=== PATIENT | male | born 1950 | race Caucasian/White ===

== ENCOUNTER 2023-06-12 18:16 | Observation (INO) | payer OTHER, SELFPAY ==
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
[2023-06-12 12:35] LABS: % Basophils 0.6 % (0-2); % Eosinophils 1.1 % (0-6); % Immature Granulocytes 0.5 % (0-0.5); % Lymphocytes 21.7 % (20.5-51.1); % Monocytes 11.2 % (1.7-9.3); % Neutrophils 64.9 % (42.2-75.2); Absolute Basophils 0.1 10^3/uL (0-0.2); Absolute Eosinophils 0.1 10^3/uL (0-0.7); Absolute Immature Granulocytes 0.1 10^3/uL (0-0.05); Absolute Lymphocytes 2.5 10^3/uL (1.2-3.4); Absolute Monocytes 1.3 10^3/uL (0.1-0.6); Absolute Neutrophils 7.4 10^3/uL (1.4-6.5); Hematocrit 33.9 % (39.0-52.0); Hemoglobin 10.4 g/dL (13.0-18.0); Mean Corp Hgb Conc. 30.7 g/dL (33.0-37.0); Mean Corpuscular Hgb 23.3 pg (27.0-31.0); Mean Platelet Volume 10.9 fL (7.4-10.4); Nucleated Red Blood Cells % 0 % (-); Platelet Count 306 10^3/uL (130-400); Red Blood Cell Count 4.46 10^6/uL (4.70-6.10); Red Cell Dist. Width 17.5 % (11.5-14.5); White Blood Cell Count 11.4 10^3/uL (4.8-10.8)
[2023-06-12 12:50] VITALS: BMI 36.2
[2023-06-12 13:07] LABS: ALT (SGPT) 20 U/L (0-50); AST (SGOT) 21 U/L (17-59); Albumin 4.3 g/dl (3.5-5.0); Alkaline Phosphatase 64 U/L (38-126); Blood Urea Nitrogen 16 mg/dl (9-20); Calcium 9.1 mg/dl (8.4-10.2); Carbon Dioxide 22 mmol/L (22-30); Chloride 106 mmol/L (98-107); Estimated Creatinine Clearance 92 ml/min; Glucose 135 mg/dl (70-99); Lipase 156 U/L (23-300); Potassium 4.4 mmol/L (3.5-5.1); Sodium 135 mmol/L (135-145); Total Bilirubin 0.8 mg/dl (0.2-1.3); Total Protein 7.1 g/dl (6.3-8.2); eGFR > 60.00
[2023-06-12] MEDS: NSS 1000 IV ×2 (13:10→21:36)
[2023-06-12] MEDS: DILAUDID 1 MG IV ×2 (13:10→17:15)
[2023-06-12] MEDS: ZOFRAN 4 MG IV (13:10)
[2023-06-12 14:54] VITALS: BP 127/82
[2023-06-12] MEDS: PROTONIX IV 80 MG IV (15:49)
[2023-06-12] MEDS: PEPCID 20 MG IV (15:49)
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
[2023-06-12 19:00] VITALS: BP 117/72
[2023-06-12] MEDS: ULTRAM 50 MG PO (19:19)
[2023-06-12 20:00] VITALS: BP 123/77
[2023-06-12 21:05] VITALS: BP 123/81; BMI 39.0
[2023-06-12] MEDS: FLOMAX 0.400000000000000022 MG PO (21:35)
[2023-06-12] MEDS: LIPITOR 80 MG PO (21:35)
[2023-06-12] MEDS: TYLENOL 650 MG PO (21:35)
[2023-06-12] MEDS: TENORMIN 25 MG PO (21:35)
[2023-06-12] MEDS: NSS (PRESERVATIVE FREE) 10 ML IV (21:36)
[2023-06-12] MEDS: PROTONIX IV 40 MG IV (21:36)
[2023-06-12 23:37] VITALS: BP 99/54
[2023-06-13] MEDS: TYLENOL 650 MG PO ×3 (02:12→20:45)
[2023-06-13 06:36] LABS: Hematocrit 31.6 % (39.0-52.0); Hemoglobin 9.1 g/dL (13.0-18.0); Mean Corp Hgb Conc. 28.8 g/dL (33.0-37.0); Mean Platelet Volume 11.2 fL (7.4-10.4); Platelet Count 262 10^3/uL (130-400); Red Blood Cell Count 3.95 10^6/uL (4.70-6.10); Red Cell Dist. Width 17.7 % (11.5-14.5); White Blood Cell Count 8.8 10^3/uL (4.8-10.8)
[2023-06-13 06:56] LABS: ALT (SGPT) 17 U/L (0-50); AST (SGOT) 18 U/L (17-59); Albumin 3.5 g/dl (3.5-5.0); Alkaline Phosphatase 57 U/L (38-126); Blood Urea Nitrogen 18 mg/dl (9-20); Calcium 8.7 mg/dl (8.4-10.2); Carbon Dioxide 25 mmol/L (22-30); Chloride 101 mmol/L (98-107); Estimated Creatinine Clearance 87 ml/min; Glucose 108 mg/dl (70-99); Potassium 4.4 mmol/L (3.5-5.1); Sodium 135 mmol/L (135-145); Total Bilirubin 1.1 mg/dl (0.2-1.3); eGFR > 60.00
[2023-06-13 07:57] VITALS: BP 111/66
[2023-06-13] MEDS: FEOSOL 162.5 MG PO (08:13)
[2023-06-13] MEDS: JARDIANCE 25 MG PO (08:13)
[2023-06-13] MEDS: TENORMIN 25 MG PO ×2 (08:13→20:51)
[2023-06-13] MEDS: NSS (PRESERVATIVE FREE) 10 ML IV ×2 (08:14→20:52)
[2023-06-13] MEDS: PROTONIX IV 40 MG IV ×2 (08:14→20:51)
[2023-06-13] MEDS: NSS 1000 IV (08:14)
[2023-06-13] MEDS: COZAAR 50 MG PO (08:14)
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
[2023-06-13] MEDS: ULTRAM 50 MG PO ×2 (08:21→16:23)
[2023-06-13 10:25] LABS: IgA 216 mg/dl (70-400)
[2023-06-13 11:25] LABS: Glucose - Point of Care 100 mg/dl (70-99)
--- NOTE | 2023-06-13 11:32 | W.PN.HOSP.TC ---
Addendum entered and electronically signed by Matthieu Mckenzie MD 06/14/23 09:12:
* Outside Maintenance Worker name is Dr Chandler.
Addendum entered and electronically signed by Matthieu Mckenzie MD 06/13/23 11:47:
Discussed with his veterinarian laboratory animal care Dr. Townsend.
The stent was placed in 2010 to LAD and he had a left heart cath in 2020 which showed patency. Patient has not seen her since 2020 and she has not prescribed the Plavix. . She recommends discontinuing aspirin and holding further Plavix .
Original Note:
Today's Communication/Plan
-
see plan above
Assessment / Plan
Assessment / Plan
# Severe active duodenitis involving the descending segment.
#Duodenal ulcers-3 without stigmata of bleeding noted on EGD today
-Patient on dual antiplatelet agent which will discuss with cardiology regarding further role of DAPT.
-Continue with PPI as recommended by GI and follow-up EGD in 2 to 3 months. Follow-up EGD biopsies.
Start on a diet.
# Cholelithiasis with RUQ pain, normal LFTs, normal T bili, �few layering tiny calcified stones.�
-His abdominal pain is suspicious related to his gastric pathology than cholelithiasis. Currently cholelithiasis is felt asymptomatic.
# Anemia - Chronic ; currently normocytic.
No obvious external bleeding. No upper GI bleed. Check iron stores. Hemoccult testing.
Past medical history:
#Cardiac arrest/CAD/PA history cardiac stent LAD 2010
-resume aspirin /hold Plavix for now till reviewed by veterinarian laboratory animal care
#Hypertension, stable, continue home meds w parameters
#DM-II/diabetic neuropathy
-cont home meds
#Morbid Obesity
#COPD, stable
#chronic bronchitis
�asbestosis
�sleep apnea
#Arthritis, chronic neck and back pain, lumbar disc disease
#HLD
#anemia, stable, repeat CBC in am
#diverticulitis, GERD/GI ulcers
#OA chronic headaches
#[place]
DVT proph-PCDs
Full Code
Anticipated Discharge: 24 - 48 hours
Subjective/Interval History
-
Date of Service: June 13, 2023
Back from EGD. Report noted with gastric polyps and 3 nonbleeding duodenal ulcer.
Currently denies any nausea vomiting. Some epigastric discomfort as before without any worsening.
He has been taking aspirin and Plavix for coronary artery stent. It was placed in . Denies using NSAIDs. Not on any PPI before coming into the hospital.
Objective Data
-
Labs:
Laboratory Results
06/13/23
05:20
WBC 8.8
Hgb 9.1 L
Hct 31.6 L
Plt Count 262
Sodium 135
Potassium 4.4
Chloride 101
Carbon Dioxide 25
BUN 18
Creatinine 0.9
Glucose 108 H
Calcium 8.7
Total Bilirubin 1.1
AST 18
ALT 17
Alkaline Phosphatase 57
Vital Signs:
Vital Signs
Temp Pulse Resp BP Pulse Ox
97.6 F 61 17 111/66 96
06/13/23 07:57 06/13/23 08:13 06/13/23 07:57 06/13/23 08:13 06/13/23 07:57
I&O
06/12/23 06/13/23 06/14/23
06:59 06:59 06:59
Intake Total 1160 / 1160
Output Total 150 / 150
Balance 1010 / 1010
Review of Systems
-
Constitutional: Denies Fever
EENT: Denies Sore Throat
Respiratory: Denies Cough or Trouble Breathing
Cardiac: Denies Chest Pain
Neuro: Denies Dizzy
Physical Exam
-
General: No Apparent Distress
HEENT: Moist Mucous Membranes
Respiratory: Clear to Auscultation
Cardiac: Regular Rhythm and S1/S2
GI: Soft and Nontender
Neuro: AO x 3
Psych: Calm
Data Reviewed
-
Labs: Labs Reviewed by me
[2023-06-13] MEDS: NOVOLOG FLEXPEN-LOW RESISTANCE SC (11:57)
[2023-06-13] MEDS: ASPIR LOW (ENTERIC COATED) 81 MG PO (11:59)
[2023-06-13 13:14] LABS: Reticulocyte Count 2.2 % (0.4-2.8)
[2023-06-13 14:33] LABS: Iron 63 ug/dl (49-181)
[2023-06-13 14:43] LABS: Percent Saturation 13 % (20-50); Total Iron Binding Capacity 456 ug/dl (261-462)
[2023-06-13 15:20] VITALS: BP 107/54
[2023-06-13] MEDS: GLUCOPHAGE 1000 MG PO (16:23)
[2023-06-13] MEDS: NEURONTIN 100 MG PO ×2 (16:23→22:46)
--- NOTE | 2023-06-13 16:30 | CM ---
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 Uses a straight cane on occasion when out of the home. Also has a RW
and shower chair. Patient will need HD with [email or web address] in [place]. His chair days are --. Stunt Person aware of change in schedule and approved. Chair time is 5am on 06/15/23. He will also need to have IV/AB on days of HD. IV/AB script and
additional records forwarded earlier today to [facility]. Pharmacy is [facility] on [address] in [facility]. PCP is Dr. Esther Gunter. DISCHARGE PLAN of CARE: Home with no needs. Patient in agreement.
[2023-06-13 16:43] LABS: Ferritin 5.7 ng/ml (17.9-464.0)
[2023-06-13 16:57] LABS: Glucose - Point of Care 167 mg/dl (70-99)
--- NOTE | 2023-06-13 17:10 | CM ---
Pharmacy is [facility] on [address] in [facility]. PCP is Dr. Esther Gunter. DISCHARGE PLAN of CARE: Home with no needs. Patient in agreement
--- NOTE | 2023-06-13 17:11 | CM ---
HOME WITH NO NEEDS. 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 Uses a straight cane on occasion when out of the home. Also has a RW and shower chair. Pharmacy is [facility] on
[address] in [place]. PCP is Dr. Esther Gunter. DISCHARGE PLAN of CARE: Home with no needs. Patient in agreement.
[2023-06-13] MEDS: NOVOLOG FLEXPEN-LOW RESISTANCE 1 UNITS SC (17:58)
[2023-06-13] MEDS: ZOFRAN 4 MG IV (18:38)
[2023-06-13 21:28] LABS: Glucose - Point of Care 163 mg/dl (70-99)
[2023-06-13] MEDS: FLOMAX 0.400000000000000022 MG PO (22:46)
[2023-06-13] MEDS: LIPITOR 80 MG PO (22:46)
[2023-06-13 23:21] VITALS: BP 110/56
[2023-06-14] MEDS: TYLENOL 650 MG PO (05:34)
--- NOTE | 2023-06-14 05:44 | W.PN.GI.CBS2 ---
Today's Communication / Plan
-
See assessment and plan for details.
Assessment / Plan
-
1. Duodenal ulcers: Clean-based, without evidence of active bleeding now, likely the source of his dyspepsia, tolerating diet without difficulty. Will await morning labs, though if no significant changes okay to DC from GI standpoint on PPI twice
daily, avoiding NSAIDs, okay to restart low-dose aspirin on discharge given his coronary artery disease. Will plan repeat EGD and colonoscopy in 2 to 3 months to assess healing and to evaluate for his chronic anemia. If morning hemoglobin is okay
we will sign off, please call back with any further questions.
Subjective
Subjective
Date of Service: June 14, 2023
Patient feeling okay, some nausea, tolerated dinner well has been eating overnight without difficulty, no vomiting, fever or chills. Some discomfort still though no worse, no bowel movements.
Objective
Data Reviewed
Laboratory Data:
Laboratory Results
06/13/23 05:20
Laboratory Results
Total Bilirubin 1.1 mg/dl (0.2-1.3) 06/13/23 05:20
AST 18 U/L (17-59) 06/13/23 05:20
ALT 17 U/L (0-50) 06/13/23 05:20
Alkaline Phosphatase 57 U/L (38-126) 06/13/23 05:20
Lipase 156 U/L (23-300) 06/12/23 12:15
Vital Signs and I&O:
Vital Signs
Temp Pulse Resp BP Pulse Ox
97.5 F 66 20 110/56 96
06/13/23 23:21 06/13/23 23:21 06/13/23 23:21 06/13/23 23:21 06/14/23 00:03
I&O
06/12/23 06/13/23 06/14/23
06:59 06:59 06:59
Intake Total 1160 / 1160 1440 / 1440
Output Total 150 / 150 550 / 550
Balance 1010 / 1010 890 / 890
Physical Exam
Physical Exam
General: NAD
Abdomen: normal bowel sounds, soft, minimal epigastric tenderness, no masses or bruits, no ascites
[2023-06-14 06:23] LABS: Hematocrit 33.4 % (39.0-52.0); Hemoglobin 9.7 g/dL (13.0-18.0); Mean Corpuscular Hgb 23.2 pg (27.0-31.0); Mean Corpuscular Volume 79.7 fL (80.0-94.0); Mean Platelet Volume 11.3 fL (7.4-10.4); Platelet Count 275 10^3/uL (130-400); Red Blood Cell Count 4.19 10^6/uL (4.70-6.10); Red Cell Dist. Width 17.7 % (11.5-14.5)
[2023-06-14 07:20] LABS: Glucose - Point of Care 119 mg/dl (70-99)
[2023-06-14 07:50] VITALS: BP 110/63
[2023-06-14] MEDS: PROTONIX IV 40 MG IV (08:18)
[2023-06-14] MEDS: ASPIR LOW (ENTERIC COATED) 81 MG PO (08:19)
[2023-06-14] MEDS: NSS (PRESERVATIVE FREE) 10 ML IV (08:19)
[2023-06-14] MEDS: JARDIANCE 25 MG PO (08:19)
[2023-06-14] MEDS: COZAAR 50 MG PO (08:19)
[2023-06-14] MEDS: NEURONTIN 100 MG PO (08:19)
[2023-06-14] MEDS: FEOSOL 162.5 MG PO (08:20)
[2023-06-14] MEDS: GLUCOPHAGE 1000 MG PO (08:20)
[2023-06-14] MEDS: TENORMIN 25 MG PO (08:20)
[2023-06-14] MEDS: NOVOLOG FLEXPEN-LOW RESISTANCE SC ×2 (08:22→12:12)
[2023-06-14 08:37] LABS: Glycohemoglobin (HgbA1c) 6.9 % (4.0-5.6)
--- NOTE | 2023-06-14 09:14 | W.PN.HOSP.TC ---
Today's Communication/Plan
-
DC
Assessment / Plan
Assessment / Plan
# Severe active duodenitis involving the descending segment.
#Duodenal ulcers-3 without stigmata of bleeding noted on EGD 06/13
-Patient on dual antiplatelet agent; discussed with cardiology Dr Chandler -he had a coronary stent in 2010 and he had repeat cardiac catheterization in 2020 with patency of LAD stent. Patient has not seen her in follow-up since 2020 and she was not
renewing the Plavix. She does not see indication of continuing Plavix from our end. Continue with just aspirin. Patient advised to follow-up with her resource coordinator after discharge.
-Continue with PPI as recommended by GI and follow-up EGD in 2 to 3 months. Follow-up EGD biopsies.
Tolerating diet.
# Cholelithiasis with RUQ pain, normal LFTs, normal T bili, �few layering tiny calcified stones.�
-His abdominal pain is suspicious related to his gastric pathology than cholelithiasis. Currently cholelithiasis is felt asymptomatic. Advised outpatient follow-up with his general surgery.
# Anemia - Chronic ; currently normocytic.
No obvious external bleeding. No upper GI bleed. Iron studies suggest iron deficiency.. No BM in the hospital.
Patient tells me anemia was noted and was asked to get a colonoscopy. He is also taking iron pills at home.
Patient is going to follow-up with the current GI team for his colonoscopy. Since oral supplementation of iron is not helping the ferritin advised him to follow-up with PCP and get IV iron infusions as outpatient.
Past medical history:
#Cardiac arrest/CAD/CT history cardiac stent LAD 2010
-resume aspirin
#Hypertension, stable, continue home meds w parameters
#DM-II/diabetic neuropathy
-cont home meds
#Morbid Obesity
#COPD, stable
#chronic bronchitis
�asbestosis
�sleep apnea
#Arthritis, chronic neck and back pain, lumbar disc disease
#HLD
#anemia, stable, repeat CBC in am
#diverticulitis, GERD/GI ulcers
#OA chronic headaches
#[place]
DVT proph-PCDs
Full Code
Medically stable for discharge
More than 30 minutes spent in discharge including
Final examination of the patient
Summarizing hospital stay
Instructions for continuing care to all relevant caregivers
Preparation of discharge records, prescriptions, and referral forms
Total time spent (in minutes): 32 minutes
Anticipated Discharge: Today
Subjective/Interval History
-
Date of Service: June 14, 2023
Improved abdominal pain. No nausea vomiting. Tolerating diet.
Objective Data
-
Labs:
Laboratory Results
06/14/23
05:21
WBC 8.0
Hgb 9.7 L
Hct 33.4 L
Plt Count 275
Vital Signs:
Vital Signs
Temp Pulse Resp BP Pulse Ox
97.8 F 60 16 110/63 95
06/14/23 07:50 06/14/23 08:19 06/14/23 07:50 06/14/23 08:19 06/14/23 07:50
I&O
06/13/23 06/14/23 06/15/23
06:59 06:59 06:59
Intake Total 1160 / 1160 1440 / 1440
Output Total 150 / 150 1100 / 1100
Balance 1010 / 1010 340 / 340
Review of Systems
-
Respiratory: Denies Cough or Trouble Breathing
Cardiac: Denies Chest Pain
Physical Exam
-
General: Well Nourished
HEENT: Moist Mucous Membranes
Respiratory: Clear to Auscultation
Cardiac: Regular Rhythm and S1/S2
GI: Soft, Nondistended, Normal Bowel Sounds and Tender (Mild discomfort in the epigastric area.)
Neuro: AO x 3
Psych: Calm
Data Reviewed
-
Labs: Labs Reviewed by me
--- NOTE | 2023-06-14 09:28 | W.DCSUMMARY ---
Discharge Summary
Discharge Data
Date of Admission: 06/12/23
Date of Discharge: 06/14/23
-
Pending Results: Yes
Additional Pending Results:
Gastric biopsies
Hospital Course
Primary diagnosis:
Severe active duodenitis
Nonbleeding duodenal ulcers
Cholelithiasis
Iron deficiency anemia
Secondary diagnosis:
#Cardiac arrest/coronary artery disease/myocardial infarction history cardiac stent left anterior descending 2010
#Hypertension, stable, continue home meds w parameters
# Diabetes mellitus-II/diabetic neuropathy
# Chronic obstructive pulmonary disease
#�sleep apnea
#Arthritis, chronic neck and back pain, lumbar disc disease
# Hyperlipidemia
Hospital course:
72-year-old gentleman presented with abdominal pain and discovered to have-
# Severe active duodenitis involving the descending segment on the CT abdomen pelvis and went on to have a EGD which showed Duodenal ulcers-3 without stigmata of bleeding noted on EGD 06/13. There are also few gastric polyps which were biopsied. No
evidence of acute blood loss. He was put on Protonix twice a day.
-Patient on dual antiplatelet agent; discussed with cardiology Dr Chandler -he had a coronary stent in 2010 and he had repeat cardiac catheterization in 2020 with patency of LAD stent.� Patient has not seen her in follow-up since 2020 and she was not
renewing the Plavix.� She does not see indication of continuing Plavix from our end.� Continue with just aspirin.� Patient advised to follow-up with her box office agent after discharge.
-Continue with PPI as recommended by GI and follow-up EGD in 2 to 3 months.� Follow-up EGD biopsies.
Tolerating diet.
# Cholelithiasis with RUQ pain, normal LFTs, normal T bili, �few layering tiny calcified stones.�
-His abdominal pain is suspicious related to his gastric pathology than cholelithiasis.� Currently cholelithiasis is felt asymptomatic.� Advised outpatient follow-up with his general surgery.
# Anemia - Chronic ; currently normocytic.
No obvious external bleeding.� No upper GI bleed.� Iron studies suggest iron deficiency..� No BM in the hospital.
Patient tells me anemia was noted and was asked to get a colonoscopy.� He is also taking iron pills at home.
Patient is going to follow-up with the current GI team for his colonoscopy.� Since oral supplementation of iron is not helping the ferritin advised him to follow-up with PCP and get IV iron infusions as outpatient.
Consultants on board:
GI-Dr. Bingham
Discharge Plan
-
Referrals:
Madalyn Gunter MD [Family Provider] -
Prescriptions:
No Action
atenolol 25 MG tablet
25 mg PO BID
albuterol sulfate 1 PUFF HFA aerosol inhaler
2 puff inhalation R Q4HPRN PRN (Reason: wheezing, sob)
nitroglycerin 0.4 MG tablet, sublingual
0.4 mg sublingual [id number] PRN (Reason: chest pain)
tamsulosin 0.4 MG capsule
0.4 mg PO HS
losartan 50 MG tablet
50 mg PO DAILY Qty: 0 0RF
atorvastatin 80 MG tablet
80 mg PO HS Qty: 0 0RF
aspirin 81 MG tablet,delayed release (DR/EC)
81 mg PO DAILY Qty: 0 0RF
metformin 1,000 MG tablet
1,000 mg PO BID@0800,1700 Qty: 0 0RF
clopidogrel 75 MG tablet
75 mg PO DAILY Qty: 1 0RF
Rx Instructions:
pantoprazole 40 mg Tablet,Delayed Release (Dr/Ec)
40 mg PO DAILY
benzonatate 200 mg capsule
200 mg PO TID PRN (Reason: cough)
tramadol 50 mg tablet
50 mg PO Q8H PRN (Reason: moderate pain)
Patient Comments:
06/12/2023: last filled 06/06/23, 21 tabs for [address] [facility]
methocarbamol 750 mg tablet
750 mg PO HS
gabapentin 100 mg capsule
100 mg PO TID
Centrum Silver Tablet
1 tab PO DAILY
cholecalciferol (vitamin D3) [Vitamin D3] 50 mcg (2,000 unit) Tablet
50 mcg PO DAILY
dapagliflozin propanediol [Farxiga] 5 mg tablet
5 mg PO DAILY
Jardiance 25 mg tablet
25 mg PO DAILY
ferrous sulfate 325 mg (65 mg iron) tablet
162.5 mg PO DAILY
--- NOTE | 2023-06-14 09:35 | W.DS.TRANS ---
DC Summary - Painter Spray
-
Discharge Instructions:
Discharge Diagnosis/Procedures Duodenal ulcer with duodenitis
Diet Low Cholesterol,Diabetic, Carb Controlled
Activity As tolerated
Driving Restrictions As prior to admission
Stop these medications: PLAVIX
Instructions:
Stand-Alone Forms:
Changes to Home Medications: No
Discharge Medications:
DC Medications w/original date entered in [employer]
albuterol sulfate 90 mcg/actuation aerosol inhaler 2 puff inhalation R Q4HPRN PRN wheezing, sob 09/10/17
atenolol 25 mg tablet 25 mg PO BID Blood pressure 09/10/17
nitroglycerin 0.4 mg sublingual tablet 0.4 mg sublingual [id number] PRN chest pain 09/30/17
tamsulosin 0.4 mg capsule 0.4 mg PO HS Urinary issue 03/20/18
aspirin 81 mg tablet,delayed release 81 mg PO DAILY Heart disease ##0 03/23/18
atorvastatin 80 mg tablet 80 mg PO HS High cholesterol ##0 03/23/18
losartan 50 mg tablet 50 mg PO DAILY Heart disease ##0 03/23/18
metformin 1,000 mg tablet 1,000 mg PO BID@0800,1700 Diabetes ##0 03/23/18
benzonatate 200 mg capsule 200 mg PO TID PRN cough 06/12/23
cholecalciferol (vitamin D3) 50 mcg (2,000 unit) tablet (Vitamin D3) 50 mcg PO DAILY Supplement 06/12/23
dapagliflozin propanediol 5 mg tablet (Farxiga) 5 mg PO DAILY Diabetes 06/12/23
empagliflozin 25 mg tablet (Jardiance) 25 mg PO DAILY 06/12/23
ferrous sulfate 325 mg (65 mg iron) tablet 162.5 mg PO DAILY Supplement 06/12/23
gabapentin 100 mg capsule 100 mg PO TID Neurological Condition 06/12/23
methocarbamol 750 mg tablet 750 mg PO HS Muscle Spasms 06/12/23
cwssdkexznpx-tdsqxjew-elaccs tablet 1 tab PO DAILY Supplement 06/12/23
tramadol 50 mg tablet 50 mg PO Q8H PRN moderate pain 06/12/23
pantoprazole 40 mg tablet,delayed release 40 mg PO BID Gastrointestinal issue #60 tabs 06/14/23
Home Medication Changes
Discontinue-Plavix
Change in medication-increased Protonix to twice a day
Pending Results: Yes (Gastric biopsies)
--- NOTE | 2023-06-14 11:28 | CM ---
Patient has been medically cleared for discharge to home with no additional skilled services. Remained on Observation status throughout stay. Patient has arranged for transport home.
[2023-06-14 11:49] LABS: Glucose - Point of Care 104 mg/dl (70-99)
[2023-06-14] MEDS: ULTRAM 50 MG PO (13:14)
[2023-06-14 16:43] LABS: tTG IgA Antibody 8.7 EU/ml (0-19); tTG IgG Antibody 14.8 EU/ml (0-19)
[2023-06-15 22:06] LABS: Endomysial IgA Antibody Titer <1:10 (<1:10)
== END 2023-06-14 13:37 | disposition home or self-care (01) ==
LOC: 2 NORTH 18:16
PROVIDERS: ADMITTING PHYSICIAN Internal Medicine; ATTENDING PHYSICIAN Internal Medicine; CONSULT PHYSICIAN Internal Medicine Gastroenterology; EMERGENCY PHYSICIAN Emergency Medicine; FAMILY PHYSICIAN Family Medicine
DX: K29.80 Duodenitis without bleeding (principal); K26.9 Duodenal ulcer, unspecified as acute or chronic, without hemorrhage or perforation; R10.9 Unspecified abdominal pain; E66.01 Morbid (severe) obesity due to excess calories; J44.9 Chronic obstructive pulmonary disease, unspecified; I25.10 Atherosclerotic heart disease of native coronary artery without angina pectoris; K21.9 Gastro-esophageal reflux disease without esophagitis; E11.40 Type 2 diabetes mellitus with diabetic neuropathy, unspecified; F41.9 Anxiety disorder, unspecified; G89.29 Other chronic pain; K80.20 Calculus of gallbladder without cholecystitis without obstruction; D50.0 Iron deficiency anemia secondary to blood loss (chronic); K31.7 Polyp of stomach and duodenum; R93.3 Abnormal findings on diagnostic imaging of other parts of digestive tract; I25.2 Old myocardial infarction; M19.90 Unspecified osteoarthritis, unspecified site; D64.9 Anemia, unspecified; R07.9 Chest pain, unspecified; E78.00 Pure hypercholesterolemia, unspecified; I10 Essential (primary) hypertension; G47.30 Sleep apnea, unspecified; Z86.74 Personal history of sudden cardiac arrest; Z87.19 Personal history of other diseases of the digestive system; Z87.442 Personal history of urinary calculi; Z83.3 Family history of diabetes mellitus; Z79.82 Long term (current) use of aspirin; Z79.51 Long term (current) use of inhaled steroids; Z79.84 Long term (current) use of oral hypoglycemic drugs; Z79.02 Long term (current) use of antithrombotics/antiplatelets; Z87.11 Personal history of peptic ulcer disease; Z95.5 Presence of coronary angioplasty implant and graft; Z90.49 Acquired absence of other specified parts of digestive tract; Z82.49 Family history of ischemic heart disease and other diseases of the circulatory system; Z88.0 Allergy status to penicillin; Z88.8 Allergy status to other drugs, medicaments and biological substances
CPT/HCPCS: 43239; 88305; 74177; 80053; 82728; 82784; 82962; 83036; 83516; 83540; 83550; 83690; 85025; 85027; 85045; 86231; 88342; 93005; 96361; 96374; 96375; 96376; 99285; G0378; Q9967

== ENCOUNTER → 2023-06-17 14:56 | Outpatient (REF) | payer OTHER, SELFPAY | LOC: HWRAD 14:56 | PROVIDERS: ATTENDING PHYSICIAN Orthopaedic Surgery; FAMILY PHYSICIAN Family Medicine | DX: M54.16 Radiculopathy, lumbar region (principal) | CPT/HCPCS: 72131 ==

== ENCOUNTER → 2023-08-03 08:30 | Outpatient (REF) | payer OTHER, SELFPAY ==
[2023-08-03 08:42] LABS: % Eosinophils 3.1 % (0-6); % Immature Granulocytes 0.9 % (0-0.5); % Lymphocytes 29.4 % (20.5-51.1); % Monocytes 11.2 % (1.7-9.3); % Neutrophils 54.4 % (42.2-75.2); Absolute Basophils 0.1 10^3/uL (0-0.2); Absolute Eosinophils 0.2 10^3/uL (0-0.7); Absolute Immature Granulocytes 0.1 10^3/uL (0-0.05); Absolute Lymphocytes 1.7 10^3/uL (1.2-3.4); Absolute Monocytes 0.7 10^3/uL (0.1-0.6); Absolute Neutrophils 3.1 10^3/uL (1.4-6.5); Hematocrit 39.4 % (39.0-52.0); Hemoglobin 11.7 g/dL (13.0-18.0); Mean Corp Hgb Conc. 29.7 g/dL (33.0-37.0); Mean Corpuscular Hgb 26.4 pg (27.0-31.0); Mean Corpuscular Volume 88.7 fL (80.0-94.0); Mean Platelet Volume 10.8 fL (7.4-10.4); Platelet Count 214 10^3/uL (130-400); Red Blood Cell Count 4.44 10^6/uL (4.70-6.10); Red Cell Dist. Width 22.1 % (11.5-14.5); White Blood Cell Count 5.8 10^3/uL (4.8-10.8)
== END ==
LOC: OIDL 08:30
PROVIDERS: ATTENDING PHYSICIAN Internal Medicine Hematology & Oncology
DX: D50.9 Iron deficiency anemia, unspecified (principal); R53.83 Other fatigue; R79.9 Abnormal finding of blood chemistry, unspecified
CPT/HCPCS: 85025

== ENCOUNTER → 2023-09-22 12:28 | Outpatient (REF) | payer OTHER, SELFPAY | LOC: MRI 12:28 | PROVIDERS: ATTENDING PHYSICIAN Orthopaedic Surgery | DX: M25.552 Pain in left hip (principal); M25.551 Pain in right hip | CPT/HCPCS: 72148; 73721 ==